=== PATIENT | female | born 1985 | race African-American/Black ===

== ENCOUNTER 2018-10-14 13:04 | Emergency (ER) | payer SELFPAY ==
[2018-10-14 13:09] VITALS: BP 138/82
[2018-10-14] MEDS ORDERED: DIPHENHYDRAMINE HCL 50 MG/ML VIAL IM ONE (13:50)
[2018-10-14] MEDS ORDERED: METOCLOPRAMIDE HCL INJ/PF 10 MG/2 ML SDV IM ONE (13:50)
[2018-10-14] MEDS ORDERED: OXYMETAZOLINE HCL 0.05% NASAL SPRAY 15 ML BOTTLE NASL ONE (13:51)
--- NOTE | 2018-10-14 13:53 | ER Document Report ---
ED Medical Screen (RME) - General Chief Complaint: Nose Bleed Stated Complaint: NOSE BLEED Time Seen by Provider: 10/14/18 13:45 Mode of Arrival: Ambulatory Information source: Patient TRAVEL OUTSIDE OF THE [place] IN LAST 30 DAYS: No - HPI Patient complains to provider of: COUGH, HEADACHE, NOSE BLEED Notes: 10/14/18 13:51 Patient here with complaints of cough for 1 week. This morning she started coughing and then developed a nosebleed. She has had trouble getting the nose to stop bleeding. No nasal injury. No blood thinners. She also reports a headache. She states that she has a history of migraine headaches and this feels similar to those. Exam No distress, nontoxic-appearing. Slight oozing noted from the nostrils. No site of bleeding identified. Lungs clear and equal throughout. Heart sounds normal. Nonfocal neuro exam. Plan Chest x-ray, Reglan and Benadryl for headache, Afrin for nose, further evaluatio n of nosebleed and back by provider. An initial examination was made on the patient as part of the triage process, and it was determined a more comprehensive evaluation was necessary. Initial labs were ordered and patient was transferred to another provider in the ED who assumed care and finished evaluation and plan. - Related Data Allergies/Adverse Reactions: No Known Allergies Allergy (Unverified 12/15/13 16:32) Past Medical History Renal/ Medical History: Denies: Hx Peritoneal Dialysis Traumatic Medical History: Denies: Hx Fractures Past Surgical History: Reports: Hx Gynecologic Surgery - ectopic preg - Immunizations Hx Diphtheria, Pertussis, Tetanus Vaccination: Yes Physical Exam - Vital signs Vitals: Temp Pulse Resp BP Pulse Ox 98.1 F 93 18 138/82 H 97 10/14/18 13:07 10/14/18 13:07 10/14/18 13:07 10/14/18 13:07 10/14/18 13:07 Course - Vital Signs Vital signs: Temp Pulse Resp BP Pulse Ox 98.1 F 93 18 138/82 H 97 10/14/18 13:07 10/14/18 13:07 10/14/18 13:07 10/14/18 13:07 10/14/18 13:07
--- NOTE | 2018-10-14 14:28 | RADIOLOGY REPORT (SQ) ---
EXAM DESCRIPTION: CHEST 2 VIEWS COMPLETED DATE/TIME: 10/14/2018 2:18 pm REASON FOR STUDY: COUGH COMPARISON: 02/13/2010 EXAM PARAMETERS: NUMBER OF VIEWS: two views TECHNIQUE: Digital Frontal and Lateral radiographic views of the chest acquired. RADIATION DOSE: NA LIMITATIONS: none FINDINGS: LUNGS AND PLEURA: No opacities, masses or pneumothorax. No pleural effusion. MEDIASTINUM AND HILAR STRUCTURES: No masses or contour abnormalities. HEART AND VASCULAR STRUCTURES: Heart normal size. No evidence for failure. BONES: No acute findings. HARDWARE: None in the chest. OTHER: No other significant finding. IMPRESSION: NO ACUTE RADIOGRAPHIC FINDING IN THE CHEST. TECHNICAL DOCUMENTATION: JOB ID: [id number] [employer]- All Rights Reserved Reading location - IP/workstation name: [email or web address]
--- NOTE | 2018-10-14 18:09 | ER Document Report ---
ED General - General Chief Complaint: Nose Bleed Stated Complaint: NOSE BLEED Time Seen by Provider: 10/14/18 13:45 Mode of Arrival: Ambulatory TRAVEL OUTSIDE OF THE [place] IN LAST 30 DAYS: No - HPI Patient complains to provider of: Cough, cold, congestion, left nasal bleeding Onset: This morning Onset/Duration: Sudden Quality of pain: No pain Severity: None Associated symptoms: None Exacerbated by: Denies Relieved by: Denies Similar symptoms previously: No Recently seen / treated by doctor: No Notes: 33-year-old -[place] female with no chronic medical problems coming in today with chief complaint of left nosebleed. She has had about a week of cold, cough, congestion. This morning she was having a coughing fit and her left nostril started to bleed. Having difficulty getting it stopped at home so she came in here to have us try to help her get it to stop. No previous history of bleeding diathesis. - Related Data Allergies/Adverse Reactions: No Known Allergies Allergy (Unverified 12/15/13 16:32) Past Medical History - General Information source: Patient - Social History Smoking Status: Current Every Day Smoker Family History: Reviewed & Not Pertinent Patient has suicidal ideation: No Patient has homicidal ideation: No Renal/ Medical History: Denies: Hx Peritoneal Dialysis Traumatic Medical History: Denies: Hx Fractures Past Surgical History: Reports: Hx Gynecologic Surgery - ectopic preg - Immunizations Hx Diphtheria, Pertussis, Tetanus Vaccination: Yes Review of Systems - Review of Systems Notes: Constitutional: No fevers. No chills. EENT: No eye redness. No eye pain. No ear pain. No sore throat. Cardiovascular: No chest pain. No palpitations. Respiratory: Positive for cough. No shortness of breath. No respiratory distress. Gastrointestinal: No abdominal pain. No nausea, vomiting, or diarrhea. Genitourinary: Atraumatic. No lesions. No pain. No discharge. Musculoskeletal: Atraumatic. No swelling. No deformities. Skin: No rash or lesions. Lymphatic: No swollen lymph nodes. Neurologic: No headache. No syncope. Psychiatric: No suicidal or homicidal ideation. Physical Exam - Vital signs Vitals: Temp Pulse Resp BP Pulse Ox 98.1 F 93 18 138/82 H 97 10/14/18 13:07 10/14/18 13:07 10/14/18 13:07 10/14/18 13:07 10/14/18 13:07 - Notes Notes: General: Well-developed, well-nourished. In no acute distress. Non-toxic appearing. Cardiac: Well-perfused. Regular rate and rhythm. No murmurs, rubs, or gallops. Pulmonary: No respiratory distress. No cyanosis. Bilateral lung fiels are clear to auscultation. Abdominal: Non-distended. Non-rigid. Bowels sounds are present in all four quadrants. No guarding or rebound. HEENT: Head is atraumatic. Conjunctivae not reddened. No tearing. PERRL. EOMI. Orbits atraumatic. No periorbital swelling or erythema. Oropharynx is without erythema, swelling, or exudates. Dry blood is visualized to the left nostril. No active bleeding. Neck: Supple. No adenopathy. No meningismus. Dermatologic: Warm with good turgor. No rash. Atraumatic. Chest: Atraumatic. No chest wall tenderness to palpation. Musculoskeletal: Moves all extremities well. No range of motion deficits. no muscular or joint tenderness. No paraspinal muscle tenderness. no midline spinal tenderness or step-off. Genitourinary: Examination deferred Neurologic: No gross neurologic deficits. Psychiatric: Normal mood. Course - Vital Signs Vital signs: Temp Pulse Resp BP Pulse Ox 98.1 F 93 18 138/82 H 97 10/14/18 13:07 10/14/18 13:07 10/14/18 13:07 10/14/18 13:07 10/14/18 13:07 Discharge - Discharge Clinical Impression: Epistaxis Upper respiratory infection Qualifiers: URI type: unspecified URI Qualified Code(s): J06.9 - Acute upper respiratory infection, unspecified Condition: Good Disposition: HOME, SELF-CARE Instructions: Upper Respiratory Illness ([facility]), Viral Syndrome ([facility]), Nosebleed Instructions ([facility]) Additional Instructions: We have given you a bottle of Afrin nasal spray. Use as directed on the bottle for future nosebleeds if present. He can also motorcoach driver her nostrils with Vaseline ointment to prevent cracking and bleeding of the mucous membranes and ear nose. Please follow the instructions for nosebleeds that are included in your discharge instructions. Return to the emergency department anytime if you have intractable nosebleed. Prescriptions: D-Methorphan Hb/P-Epd HCl/Bpm [Bromfed-DM Cough Syrup] 5 ml PO Q6HP PRN #120 ml PRN Reason: Referrals: [facility] [Provider Group] - Follow up as needed
== END 2018-10-14 18:21 | disposition home or self-care (01) ==
LOC: ER 13:04
DX: R04.0 Epistaxis (principal); J06.9 Acute upper respiratory infection, unspecified; R05 Cough; R09.81 Nasal congestion; F17.200 Nicotine dependence, unspecified, uncomplicated
CPT/HCPCS: 99283; 96372; 71046; J1200; J2765; J3490